=== PATIENT | male | born 1960 | race Caucasian/White ===

== ENCOUNTER 2016-10-18 12:58 | Emergency (ER) | payer MEDICARE, OTHER ==
[~2016-10-18] VITALS: Ht 165.1 cm; Wt 72.6 kg
[~2016-10-18 12:58] MED LIST: HYDR-2762 PO; TRAM50TA PO
[2016-10-18 13:09] VITALS: BP 138/71
--- NOTE | 2016-10-18 13:38 | PHYS DOC ---
Past Medical History Past Medical History: Anxiety, Depression, Other Additional Past Medical Histor: chronic pain,PANIC ATTACKS,AGORAPHOBIA Past Surgical History: No Surgical History Alcohol Use: Occasionally Drug Use: None Adult General Chief Complaint Chief Complaint: EYE PROBLEMS [facility] HPI Patient is a 56 year old female presents emergency department stating that he has a rash on the right side of his face. Patient states that he felt as though there was something sharp in his eye. He denies there being a foreign object states that that is what it feels like. He states he's had a rash since also developed on the right side of his face for the last week and has gone into the hairline. He denies any pain or discomfort. There is no drainage from the rash no drainage from the eye. Patient is unsure whether he's had the chickenpox since child. Patient has slight blurred vision with the right eye. Review of Systems Review of Systems Constitutional: Denies fever or chills [] Eyes: Denies change in visual acuity,C/o redness, or eye pain [] HENT: Denies nasal congestion or sore throat [] Respiratory: Denies cough or shortness of breath [] Cardiovascular: No additional information not addressed in HPI [] GI: Denies abdominal pain, nausea, vomiting, bloody stools or diarrhea [] : Denies dysuria or hematuria [] Musculoskeletal: Denies back pain or joint pain [] Integument: rash right side of face denies skin lesions [] Neurologic: Denies headache, focal weakness or sensory changes [] Endocrine: Denies polyuria or polydipsia [] Current Medications Current Medications Current Medications Medications (Trade) Dose Ordered Sig/[facility] Start Time Stop Time Status Last Admin Dose Admin Eye Irrigation Solution (Eye-Stream) 120 ml 1X ONCE 10/18/16 14:00 10/18/16 14:01 DC 10/18/16 13:37 120 ML Fluorescein Sodium (Ful-Aileen) 1 strip 1X ONCE 10/18/16 14:00 10/18/16 14:01 DC 10/18/16 13:36 1 STRIP Tetracaine HCl (Tetracaine) 1 drop 1X ONCE 10/18/16 14:00 10/18/16 14:01 DC 10/18/16 13:37 1 DROP Allergies Allergies Allergies Coded Allergies Type Severity Reaction Last Updated Verified No Known Drug Allergies 06/24/14 No Physical Exam Physical Exam Constitutional: Well developed, well nourished, no acute distress, non-toxic appearance. [] HENT: Normocephalic, atraumatic, bilateral external ears normal, oropharynx moist, no oral exudates, nose normal. Bilateral tympanic membranes appear to be normal. Eyes: PERRLA, EOMI, conjunctiva red with no discharge noted. Neck: Normal range of motion, no tenderness, supple, no stridor. [] Cardiovascular:Heart rate regular rhythm, no murmur [] Lungs & Thorax: Bilateral breath sounds clear to auscultation [] Skin: Warm, dry, no erythema, red raised rash on the right side of the patient' s headache does not cross over the midline. Does appear in the scalp area. No drainage or discharge noted Back: No tenderness Extremities: No tenderness, no cyanosis, no clubbing, ROM intact, no edema. [] Neurologic: Alert and oriented X 3, normal motor function, normal sensory function, no focal deficits noted. [] Psychologic: Affect normal, judgement normal, mood normal. [] Current Patient Data Vital Signs Vital Signs Date Time Temp Pulse Resp B/P Pulse Ox O2 Delivery O2 Flow Rate FiO2 10/18/16 13:09 98.5 88 16 94 Room Air 98.5 EKG EKG [] Radiology/Procedures Radiology/Procedures [] Course & Med Decision Making Course & Med Decision Making Pertinent Labs and Imaging studies reviewed. (See chart for details) Exam was completed with 2 small pinpoint dots noted with uptake of fluorescein at the 12:00 area. Tetracaine was placed in the eye prior. Call was placed to Dr. Moreira in regards to possibility of shingles in the eye. Patient will be discharged from the emergency department and sent directly to his office. Patient will be placed on acyclovir and hydrocodone for pain and discomfort. Patient agrees with discharge instructions treatment regimens and follow-up recommendations. Signs and symptoms to return back to emergency department as been provided. [] Dragon Disclaimer Dragon Disclaimer This electronic medical record was generated, in whole or in part, using a voice recognition dictation system. Departure Departure Impression: Primary Impression: Shingles Disposition: 01 HOME, SELF-CARE Condition: STABLE Referrals: SABAS SAMANIEGO (PCP) Jatin MOREIRA MD Patient Instructions: Shingles, [id number] Additional Instructions: Go directly to Dr Moreira office Medications as prescribed. Benadryl may also help with pain and discomfort as well as itching. Hydrocodone will cause drowsiness do not take any be alert and oriented. Follow-up to primary care physician in the next week. Return back to emergency prior signs symptoms of become worse. Scripts Hydrocodone/Apap 5-325 ([place] 5-325 Tablet)1 Each Tablet1-2 Tab PO Q4-6HRS #20 TAB Prov:HEATHER HOLLY RESIDENCE DIRECTOR 10/18/16 Acyclovir 800 Mg Tablet1 Tab PO 5XDAY #50 TAB Prov:HEATHER HOLLY RESIDENCE DIRECTOR 10/18/16 HEATHER HOLLY APRN Oct 18, 2016 13:38
[2016-10-18] MEDS ORDERED: TETRACAINE 0.5% OPHTH SOLUTION 4ML BOTTLE. OD ONE (14:00)
[2016-10-18] MEDS ORDERED: EYE-STREAM OPHTH SOLUTION 120 ML BOTTLE. OD ONE (14:00)
[2016-10-18] MEDS ORDERED: FLUORESCEIN OPHTH TEST STRIP. OD ONE (14:00)
[2016-10-18] MEDS ORDERED: HYDR-971 PO (14:22)
[2016-10-18] MEDS ORDERED: ACYC800T PO (14:22)
== END 2016-10-18 14:36 | disposition home or self-care (01) ==
LOC: ER 12:58
DX: B02.9 Zoster without complications (principal); G89.29 Other chronic pain
CPT/HCPCS: 99283

== ENCOUNTER 2017-01-06 14:39 | Emergency (ER) | payer MEDICARE, MEDICAID ==
[~2017-01-06 14:39] MED LIST changes: +ACYC800T PO; +HYDR-971 PO
[2017-01-06] MEDS ORDERED: HYDROcodone/APAP 5/325MG 1 TAB TABLET PO ONE (15:15)
[2017-01-06] MEDS ORDERED: NAPR500T3 PO (15:55)
[2017-01-06] MEDS ORDERED: HYDR-971 PO (15:55)
--- NOTE | 2017-01-06 15:55 | PHYS DOC ---
Past Medical History Past Medical History: Anxiety, Depression, Other Additional Past Medical Histor: chronic pain,PANIC ATTACKS,AGORAPHOBIA Past Surgical History: No Surgical History Alcohol Use: Occasionally Drug Use: None Adult General Chief Complaint Chief Complaint: TRAUMA ACTIVATION HPI HPI Patient is a 56 year old male who presents with left leg pain after fall from tree. The patient states 3 days ago he was trimming trees, shifted position, lost his balance, fell 20 feet & landed on his left side. Unsure whether he hit head, denies loss of consciousness. He presents today because he has persistent left lower leg pain which causes pain with ambulation. Denies headache, neck pain, back pain, chest pain, shortness of breath, abdominal pain , extremity numbness/weakness. Did not seek treatment at time of injury. Review of Systems Review of Systems Constitutional: Denies fever or chills Eyes: Denies change in visual acuity HENT: Denies nasal congestion or sore throat Respiratory: Denies cough or shortness of breath Cardiovascular: Denies chest pain or edema GI: Denies abdominal pain, nausea, vomiting Musculoskeletal: Denies back pain, reports lower extremity pain Integument: Denies rash or skin lesions Neurologic: Denies headache, focal weakness or sensory changes Current Medications Current Medications Current Medications Medications (Trade) Dose Ordered Sig/[facility]p Start Time Stop Time Status Last Admin Dose Admin Acetaminophen/ Hydrocodone Bitart (Lortab 5/325) 2 tab 1X ONCE 01/06/17 15:15 01/06/17 15:16 DC 01/06/17 15:16 2 TAB Allergies Allergies Allergies Coded Allergies Type Severity Reaction Last Updated Verified codeine Allergy Intermediate Itching 10/18/16 Yes Physical Exam Physical Exam Constitutional: Well developed, well nourished, no acute distress, non-toxic appearance. HENT: Normocephalic, atraumatic, bilateral external ears normal, oropharynx moist, nose normal. Eyes: conjunctiva normal, no discharge. Neck: supple, no stridor. no midline c-spine tenderness. Cardiovascular: RRR, no murmurs, no edema. Lungs & Thorax: LCTAB, no wheezing, no respiratory distress. Abdomen: soft, nontender, nondistended. Skin: Warm, dry, no erythema, no rash. Back: No spinal tenderness. Extremities: LLE no swelling or deformity. generalized tenderness with palpation over anterior knee as well as proximal tib/fib, no hip or ankle tenderness, intact knee flexion/extension, intact straight leg raise, negative anterior/posterior drawer, stable to valgus/varus stress, dp/pt 2+, sensation intact to foot. Neurologic: Alert and oriented X 3, no focal deficits noted. Psychologic: Affect normal, judgement normal, mood normal. EKG EKG [] Radiology/Procedures Radiology/Procedures XR L knee: interpreted by me: no fracture or dislocation XR L tib/fib: interpreted by me: no fracture or dislocation Course & Med Decision Making Course & Med Decision Making Pertinent Labs and Imaging studies reviewed. (See chart for details) The patient presents with lower extremity pain after fall from a tree. The patient met criteria for trauma alert so appropriate protocols were followed until it became obvious that he had isolated extremity injury without deformity. Gave pain medication & obtained XR which was negative for fracture. He is bearing weight & injury occurred several days prior to presentation, low suspicion for occult bony injury. Certainly possibility of soft tissue injury. Recommended knee immobilizer but he only wants an erik wrap so that was provided. Recommend rest, ice, compression, elevation, ibuprofen q8 hrs, norco for breakthrough pain. Given sedation precautions. Follow up with Dr. Salas in the orthopedic clinic in 1-2 weeks. Come back for neurovascular compromise or otherwise worsening condition. Discharged home in stable condition. [] Dragon Disclaimer Dragon Disclaimer This electronic medical record was generated, in whole or in part, using a voice recognition dictation system. Departure Departure Impression: Primary Impression: Knee pain Disposition: 01 HOME, SELF-CARE Condition: STABLE Referrals: SABAS SAMANIEGO (PCP) RODDY SALAS MD Patient Instructions: Knee Pain, [id number] Additional Instructions: You seen in the emergency department today for knee injury. There was not a fracture on your x-ray. There could still be soft tissue injuries. Wear the Erik wrap for comfort. Apply ice, try to elevate, take naproxen for pain and [place] for severe breakthrough pain. No drinking alcohol or driving while taking this medication. Also do not climb trees will taking this medication. Follow-up with Dr. Salas in the orthopedic clinic if not improving in about one week. Return to the emergency department for cold or numb foot, or any otherwise worsening condition. Scripts Hydrocodone/Apap 5-325 (NORCO 5-325 TABLET) 1 Each Tablet 1 TAB PO PRN Q6HRS Y for PAIN, #10 TAB 0 Refills Prov: RAVEN COLE MD 01/06/17 Naproxen (NAPROXEN) 500 Mg Tablet 1 TAB PO BID, #20 TAB 1 Refill Prov: RAVEN COLE MD 01/06/17 RAVEN COLE MD Jan 06, 2017 15:55
--- NOTE | 2017-01-07 08:29 | RAD ---
Left TIBIA FIBULA AP LATERAL Clinical Indication: pain fall 2 days ago. Comparison: None. Findings: The knee and ankle joints are grossly intact. There is no acute fracture or dislocation. There is no significant soft tissue swelling. No radiopaque foreign body is identified. IMPRESSION: No acute fracture.
--- NOTE | 2017-01-07 08:30 | RAD ---
KNEE 3 VIEWS LEFT Clinical Indication: pain fall 2 days ago Comparison: None. Findings: There is no acute fracture or dislocation. The tricompartmental joint spaces are maintained. The patella is in anatomic position. There is no soft tissue abnormality. There is no joint effusion. IMPRESSION: No acute fracture or dislocation.
== END 2017-01-06 15:55 | disposition home or self-care (01) ==
LOC: ER 14:39
DX: M25.562 Pain in left knee (principal); G89.29 Other chronic pain; F41.9 Anxiety disorder, unspecified; Z88.6 Allergy status to analgesic agent; W14.XXXA Fall from tree, initial encounter; Y93.H2 Activity, gardening and landscaping; Y99.8 Other external cause status; Y92.89 Other specified places as the place of occurrence of the external cause
CPT/HCPCS: 73562; 73590; 99284

== ENCOUNTER 2017-04-26 14:49 | Emergency (ER) | payer MEDICARE, MEDICAID ==
[~2017-04-26] VITALS: Ht 165.1 cm; Wt 72.6 kg
[~2017-04-26 14:49] MED LIST changes: +NAPR500T4 PO
--- NOTE | 2017-04-26 15:21 | PHYS DOC ---
Past Medical History Past Medical History: Anxiety, Depression, Other Additional Past Medical Histor: chronic pain,PANIC ATTACKS,AGORAPHOBIA Past Surgical History: No Surgical History Alcohol Use: Occasionally Drug Use: None Adult General Chief Complaint Chief Complaint: PAIN CONTROL HPI HPI Patient is a 56 year old male with a history of back injury in 1996 presents to the ED complaining of back pain x 3 days. States he was turning and felt a sharp pain go down his left leg. States same pain with previous exacerbations of chronic pain. Describes the pain as sharp. Rates the pain as 8 out of 10. Denies bowel/bladder changes, trauma, saddle anesthesia, dizziness, weakness, nausea/vomiting, chest pain or shortness of breath. Review of Systems Review of Systems Constitutional: Denies fever or chills [] Eyes: Denies change in visual acuity, redness, or eye pain [] HENT: Denies nasal congestion or sore throat [] Respiratory: Denies cough or shortness of breath [] Cardiovascular: No additional information not addressed in HPI [] GI: Denies abdominal pain, nausea, vomiting, bloody stools or diarrhea [] : Denies dysuria or hematuria [] Musculoskeletal: Complains of back pain. Denies joint pain [] Integument: Denies rash or skin lesions [] Neurologic: Denies headache, focal weakness or sensory changes [] Endocrine: Denies polyuria or polydipsia [] Allergies Allergies Allergies Coded Allergies Type Severity Reaction Last Updated Verified codeine Allergy Intermediate Itching 10/18/16 Yes Physical Exam Physical Exam Constitutional: Well developed, well nourished, no acute distress, non-toxic appearance. [] HENT: Normocephalic, atraumatic, bilateral external ears normal, oropharynx moist, no oral exudates, nose normal. [] Eyes: PERRLA, EOMI, conjunctiva normal, no discharge. [] Neck: Normal range of motion, no tenderness, supple, no stridor. [] Cardiovascular:Heart rate regular rhythm, no murmur [] Lungs & Thorax: Bilateral breath sounds clear to auscultation [] Abdomen: Bowel sounds normal, soft, no tenderness, no masses, no pulsatile masses. [] Skin: Warm, dry, no erythema, no rash. [] Back: NO SPINAL TENDERNESS. PAIN RADIATES DOWN LEG IN SCIATIC NERVE DISTRIBUTION. FROM. No tenderness, no CVA tenderness. [] Extremities: No tenderness, no cyanosis, no clubbing, ROM intact, no edema. [] Neurologic: Alert and oriented X 3, normal motor function, normal sensory function, no focal deficits noted. [] Psychologic: Affect normal, judgement normal, mood normal. [] Current Patient Data Vital Signs Vital Signs Date Time Temp Pulse Resp B/P (MAP) Pulse Ox O2 Delivery O2 Flow Rate FiO2 04/26/17 15:38 97.9 70 20 95 Room Air 97.9 EKG EKG [] Radiology/Procedures Radiology/Procedures [] Course & Med Decision Making Course & Med Decision Making Pertinent Labs and Imaging studies reviewed. (See chart for details) []Patient has a history of chronic pain. No new injury. No bony tenderness. No x -ray warranted. Will discharge with analgesics and follow-up with orthopedics in 1-2 days. Provided contact information/education. Discussed reasons to return to the ED. Patient understands and agrees with plan. Dragon Disclaimer Dragon Disclaimer This electronic medical record was generated, in whole or in part, using a voice recognition dictation system. Departure Departure Impression: Primary Impression: Back pain Additional Impressions: Chronic pain Sciatica Disposition: HOME, SELF-CARE Condition: STABLE Referrals: SABAS SAMANIEGO (PCP) RICARDO ROMANO II, MD, MICHAEL M MD Patient Instructions: Back Pain, Adult Scripts Hydrocodone/Apap 5-325 (NORCO 5-325 TABLET) 1 Each Tablet 1 TAB PO TID, #8 TAB Prov: REMY LOPEZ 04/26/17 Problem Qualifiers REMY LOPEZ Apr 26, 2017 15:21
[2017-04-26] MEDS ORDERED: HYDR-971 PO (15:25)
[2017-04-26 15:38] VITALS: BP 147/76
== END 2017-04-26 15:41 | disposition home or self-care (01) ==
LOC: ER 14:49
DX: G89.29 Other chronic pain (principal); M54.32 Sciatica, left side; M54.89 Other dorsalgia; Z88.5 Allergy status to narcotic agent
CPT/HCPCS: 99283

== ENCOUNTER 2021-02-25 15:41 | Emergency (ER) | payer MEDICARE, MEDICAID ==
[~2021-02-25] VITALS: Ht 165.1 cm; Wt 77.2 kg
[~2021-02-25 15:41] MED LIST changes: -ACYC800T PO; +ACYC800T88 PO; -HYDR-2762 PO; +HYDR-2765 PO; +HYDR-3164 PO; -HYDR-971 PO; +NAPR-514 PO; -NAPR500T4 PO
[2021-02-25 17:13] VITALS: BP 145/67
[2021-02-25] MEDS ORDERED: IBUPROFEN 400 MG TABLET. PO ONE (17:15)
[2021-02-25] MEDS ORDERED: AMOX500C PO (17:23)
--- NOTE | 2021-02-25 17:24 | PHYS DOC ---
Past Medical History Past Medical History: Anxiety, Depression, Other Additional Past Medical Histor: chronic pain,PANIC ATTACKS,AGORAPHOBIA Past Surgical History: No Surgical History Smoking Status: Current Every Day Smoker Alcohol Use: Occasionally Drug Use: None General Adult EDM: Chief Complaint: OTHER COMPLAINTS HPI: HPI: Patient is a 60 year old male who presents with dental pain. Has chronically poor dentition and has been advised to have his teeth pulled for years. Over the past week has had increasing pain and swelling in his left upper jaw especially. Has a pain radiating towards his maxilla his eye on that side. No fevers or chills. He is eating less just since last night, due to pain. His appetite is still intact. Review of Systems: Review of Systems: Constitutional: Denies fever or chills. [] HENT: Reports dental pain. No nasal congestion. [] Respiratory: Denies cough or shortness of breath. [] Cardiovascular: Denies chest pain or edema. [] GI: Denies abdominal pain, nausea, vomiting, bloody stools or diarrhea. [] All other systems were reviewed and negative except where noted elsewhere. Heart Score: C/O Chest Pain: No Risk Factors: Risk Factors: DM, Current or recent (<one month) smoker, HTN, HLP, family h istory of CAD, obesity. Risk Scores: Score 0 - 3: 2.5% MACE over next 6 weeks - Discharge Home Score 4 - 6: 20.3% MACE over next 6 weeks - Admit for Clinical Observation Score 7 - 10: 72.7% MACE over next 6 weeks - Early Invasive Strategies Allergies: Allergies: Allergies Coded Allergies Type Severity Reaction Last Updated Verified codeine Allergy Intermediate Itching 10/18/16 Yes Physical Exam: PE: Constitutional: Well developed, well nourished, no acute distress, non-toxic appearance. [] HENT: Very poor dentition with evidence of gingivitis, and multiple fractured teeth with caries. No identified drainable abscess seen. No evidence of maxillary abscess.. [] Eyes: conjunctiva normal, no discharge. [] Neck: Normal range of motion, no tenderness, supple, no stridor. [] Cardiovascular:Heart rate regular [] Lungs & Thorax: Normal work of breathing [] Abdomen: Bowel sounds normal, soft, no tenderness, no masses, no pulsatile masses. [] Skin: Warm, dry, no erythema, no rash. [] Back: No tenderness, no CVA tenderness. [] Extremities: No tenderness, no cyanosis, no clubbing, ROM intact, no edema. [] Neurologic: Alert and oriented X 3, normal motor function, normal sensory function, no focal deficits noted. [] Psychologic: Affect normal, judgement normal, mood normal. [] EKG: EKG: [] Radiology/Procedures: Radiology/Procedures: [] Course & Med Decision Making: Course & Med Decision Making Pertinent Labs and Imaging studies reviewed. (See chart for details) Patient is 60-year-old male with a history of chronically poor dentition who presents with swelling and increasing pain in his left upper teeth. Exam with multiple fractured teeth, dental caries, and edema to the gumline. No identified drainable abscess seen. Concern for dental infection. Will treat with amoxicillin. No evidence of Taylor's angina or deep abscess that would require imaging. We are giving him a list of dental clinics to follow-up with. We'll treat pain with Tylenol and ibuprofen Dashawn Disclaimer: Dashawn Disclaimer: This electronic medical record was generated, in whole or in part, using a voice recognition dictation system. Departure Departure Impression: Primary Impression: Dental infection Disposition: HOME / SELF CARE / HOMELESS Condition: STABLE Referrals: SABAS SAMANIEGO (PCP) Patient Instructions: Dental Caries Scripts Amoxicillin (AMOXICILLIN) 500 Mg Capsule 1000 MG PO Q12HR for infection for 7 Days, #28 CAP 0 Refills Prov: NIURKA STARR MD 02/25/21 NIURKA STARR MD Feb 25, 2021 17:23
== END 2021-02-25 17:41 | disposition home or self-care (01) ==
LOC: ER 15:41
DX: K04.7 Periapical abscess without sinus (principal); F41.9 Anxiety disorder, unspecified; F32.9 Major depressive disorder, single episode, unspecified; F17.200 Nicotine dependence, unspecified, uncomplicated; G89.29 Other chronic pain; Z88.5 Allergy status to narcotic agent
CPT/HCPCS: 99283